=== PATIENT | male | born 1955 | race Caucasian/White ===

== ENCOUNTER 2021-09-18 20:42 | Emergency (ER) | payer MEDICARE, OTHER | END 2021-09-18 23:05 | disposition home or self-care (01) | LOC: JD.ED 20:42 | DX: S99.922A Unspecified injury of left foot, initial encounter (principal); Z88.2 Allergy status to sulfonamides; X50.0XXA Overexertion from strenuous movement or load, initial encounter | CPT/HCPCS: 73630-26-LT; 73630-LT; 99283 ==